=== PATIENT | male | born 1955 | race Caucasian/White ===

== ENCOUNTER 2016-03-31 04:48 | Inpatient (IN) | payer BC ==
[~2016-03-31] VITALS: Ht 177.8 cm; Wt 70.3 kg
[2016-03-31] VITALS (7 sets, daily range): BP systolic 121–179; BP diastolic 51–89
[2016-03-31 05:13] LABS: BASO # 0.1 x10^3/uL (0.0-0.2); BASO % 1 % (0-3); EOS % 4 % (0-3); HEMATOCRIT 40.1 % (39.0-53.0); HEMOGLOBIN 13.6 g/dL (13.0-17.5); LYMPH # 2.4 x10^3/uL (1.0-4.8); LYMPH % 35 % (24-48); MEAN CORPUSCULAR HEMOGLOBIN 32 pg (25-35); MEAN CORPUSCULAR HGB CONC 34 g/dL (31-37); MEAN CORPUSCULAR VOLUME 95 fL (79-100); MONO % 11 % (0-9); NEUT % 48 % (31-73); PLATELET COUNT 356 x10^3/uL (140-400); RED BLOOD COUNT 4.21 x10^6/uL (4.30-5.70); RED CELL DISTRIBUTION WIDTH 12.9 % (11.5-14.5)
--- NOTE | 2016-03-31 05:18 | PHYS DOC ---
Past Medical History Past Medical History: No Pertinent History Past Surgical History: Other Additional Past Surgical Histo: left knee Smoking: Cigar Alcohol Use: Occasionally Drug Use: None Adult General Chief Complaint Chief Complaint: NEURO SYMPTOMS/DEFICITS [facility] Patient is a 60 year old male who presents with right-sided body weakness and numbness to the right corner of his mouth since waking at 1 AM. He feels his coordination on the right side of his body is poor. He was in his normal state of health when he went to bed. He denies headache, dizziness, vision changes, speech difficulties, chest pain, dyspnea, fever or chills, palpitations, abdominal pain, diarrhea, dysuria. He denies neck pain or manipulation. Review of Systems Review of Systems Constitutional: Denies fever or chills [] Eyes: Denies change in visual acuity, redness, or eye pain [] HENT: Denies nasal congestion or sore throat [] Respiratory: Denies cough or shortness of breath [] Cardiovascular: No additional information not addressed in [facility] [] GI: Denies abdominal pain, nausea, vomiting, bloody stools or diarrhea [] : Denies dysuria or hematuria [] Musculoskeletal: Denies back pain or joint pain [] Integument: Denies rash or skin lesions [] Neurologic: Denies headache [] Endocrine: Denies polyuria or polydipsia [] Allergies Allergies Allergies Coded Allergies Type Severity Reaction Last Updated Verified No Known Drug Allergies 03/31/16 No Physical Exam Physical Exam Constitutional: Well developed, well nourished, no acute distress, non-toxic appearance. [] HENT: Normocephalic, atraumatic, bilateral external ears normal, oropharynx moist, no oral exudates, nose normal. [] Eyes: PERRLA, EOMI. [] Neck: Normal range of motion, supple. [] Cardiovascular:Heart rate regular rhythm [] Lungs & Thorax: Bilateral breath sounds clear to auscultation [] Abdomen: Bowel sounds normal, soft, no tenderness. [] Skin: Warm, dry, no erythema, no rash. [] Back: Normal ROM. [] Extremities: No tenderness, ROM intact, no edema. [] Neurologic: Arousal - alert and cooperative, A&O x 4 Speech - regular rate, volume and tone Language: fluent and spontaneous speech CN 2: PERRL CN 3, 4, 6: EOM intact, no nystagmus CN 5: Normal sensation to light touch CN 7: Mild right facial droop CN 8: Equal hearing to finger rub CN 9/10: Intact CN 11: Normal shoulder shrug bilaterally CN 12: Tongue midline Motor exam: Bilateral upper and lower extremities with normal tone, 5/5 strength. No pronator drift. Coordination: Finger to nose abnormal on RUE and normal on LUE Gait: steady, narrow gait with slight limp favoring left leg. Psychologic: Affect normal, judgement normal, mood normal. [] Current Patient Data Vital Signs Vital Signs Date Time Temp Pulse Resp B/P Pulse Ox O2 Delivery O2 Flow Rate FiO2 03/31/16 04:57 97.7 83 16 184/99 96 Room Air 97.7 Lab Values Laboratory Tests Test 03/31/16 05:05 03/31/16 05:24 White Blood Count 7.0x10^3/uL (4.0-11.0) Red Blood Count 4.21x10^6/uL (4.30-5.70) L Hemoglobin 13.6g/dL (13.0-17.5) Hematocrit 40.1% (39.0-53.0) Mean Corpuscular Volume 95fL (79-100) Mean Corpuscular Hemoglobin 32pg (25-35) Mean Corpuscular Hemoglobin Concent 34g/dL (31-37) Red Cell Distribution Width 12.9% (11.5-14.5) Platelet Count 356x10^3/uL (140-400) Neutrophils (%) (Auto) 48% (31-73) Lymphocytes (%) (Auto) 35% (24-48) Monocytes (%) (Auto) 11% (0-9) H Eosinophils (%) (Auto) 4% (0-3) H Basophils (%) (Auto) 1% (0-3) Neutrophils # (Auto) 3.4x10^3uL (1.8-7.7) Lymphocytes # (Auto) 2.4x10^3/uL (1.0-4.8) Monocytes # (Auto) 0.8x10^3/uL (0.0-1.1) Eosinophils # (Auto) 0.3x10^3/uL (0.0-0.7) Basophils # (Auto) 0.1x10^3/uL (0.0-0.2) Sodium Level 137mmol/L (136-145) Potassium Level 4.7mmol/L (3.5-5.1) Chloride Level 103mmol/L (98-107) Carbon Dioxide Level 25mmol/L (21-32) Anion Gap 9 (6-14) Blood Urea Nitrogen 12mg/dL (8-26) Creatinine 0.7mg/dL (0.7-1.3) Estimated GFR (Cockcroft-Gault) 114.3 Glucose Level 116mg/dL (70-99) H Calcium Level 8.9mg/dL (8.5-10.1) Troponin I Quantitative < 0.017ng/mL (0.000-0.055) Urine Opiates Screen Neg (NEG) Urine Methadone Screen Neg (NEG) Urine Barbiturates Neg (NEG) Urine Phencyclidine Screen Neg (NEG) Urine Amphetamine/Methamphetamine Neg (NEG) Urine Benzodiazepines Screen Neg (NEG) Urine Cocaine Screen Neg (NEG) Urine Cannabinoids Screen Neg (NEG) Urine Ethyl Alcohol Neg (NEG) Laboratory Tests 03/31/16 05:05 Laboratory Tests 03/31/16 05:05 EKG EKG EKG as interpreted by me as normal sinus rhythm, rate 81, no ST-T changes, normal intervals, PVC Radiology/Procedures Radiology/Procedures Head CT without contrast IMPRESSION No acute intracranial CT abnormality. Electronically signed by: Filemon Aggarwal MD (Mar 31, 2016 05:25:58) Course & Med Decision Making Course & Med Decision Making Pertinent Labs and Imaging studies reviewed. (See chart for details) NIHSS 2 (1 for face droop, 1 for RUE ataxia). Symptoms concerning for acute stroke. Workup otherwise unremarkable. He is not a candidate for thrombolysis due to symptom onset greater than 3 hours. Will admit for concern of acute ischemic stroke. ASA given. Discussed case with Dr. Sahni, who will admit. Neurology consultation placed. Jc Disclaimer Dragon Disclaimer This electronic medical record was generated, in whole or in part, using a voice recognition dictation system. Departure Departure Impression: Primary Impression: Acute ischemic stroke Additional Impression: Acute right-sided weakness Disposition: ADMITTED INPATIENT Condition: STABLE Problem Qualifiers Maxx URIBE MD Mar 31, 2016 05:18
[2016-03-31 05:24] LABS: CALCIUM 8.9 mg/dL (8.5-10.1); CREATININE 0.7 mg/dL (0.7-1.3); GFR 114.3; POTASSIUM 4.7 mmol/L (3.5-5.1)
--- NOTE | 2016-03-31 05:26 | RAD ---
PROCEDURE CT head without contrast HISTORY Right-sided weakness for 4 days TECHNIQUE Exposure: One or more of the following individualized dose reduction techniques were utilized for this exam: 1. Automated exposure control. 2. Adjustment of the mA and/or kV according to patient size. 3. Use of iterative reconstruction technique. [address] imaging skullbase to vertex COMPARISON No prior FINDINGS No intracranial hemorrhage, mass, hydrocephalus, extra-axial fluid collections or infarction. Differential white-white matter brain attenuation remains intact. Orbits, paranasal sinuses, mastoids and bones are unremarkable. IMPRESSION No acute intracranial CT abnormality. Electronically signed by: Filemon Aggarwal MD (Mar 31, 2016 05:25:58)
[2016-03-31 05:42] LABS: BARBITURATES NEG (NEG); BENZODIAZEPINES NEG (NEG); CANNABINOIDS NEG (NEG); COCAINE NEG (NEG); METHADONE NEG (NEG); OPIATES NEG (NEG); PHENCYCLIDINE NEG (NEG)
[2016-03-31 05:44] LABS: ETHANOL, URINE NEG (NEG)
--- NOTE | 2016-03-31 05:50 | ACF ---
Admit Criteria Forms Admit Criteria Forms Admit Criteria Forms STROKE: ISCHEMIC Clinical Indications for Admission to Inpatient Care (Place 'X' for any and all applicable criteria): Admission is indicated for ANY ONE of the following(1)(2)(3)(4): [X]I. Acute stroke Extended stay beyond goal length of stay may be needed for(1)(2) [ ]a) Major deficit or clinical deterioration [ ]b) Hospital-acquired infection (eg, urinary tract infection, pneumonia) [ ]c) Embolic cause of stroke [ ]d) Venous thromboembolism(9) [ ]e) Seizures [ ]f) Bleeding (eg, cerebral) [ ]g) Increased intracranial pressure [ ]h) Comorbidities [ ]i) Surgical intervention The original [employer] content created by [employer] has been revised. The portions of the content which have been revised are identified through the use of italic text or in bold, and [facility] has neither reviewed nor approved the modified material. All other unmodified content is copyright [employer]. Please see references footnoted in the original [employer] edition 2016 YESSENIA BROWN Mar 31, 2016 05:50
[2016-03-31] MEDS ORDERED: ONDANSETRON PF 4 MG/2 ML VIAL. IV PRN (06:00)
[2016-03-31] MEDS ORDERED: ASPIRIN 325 MG TABLET PO ONE ×2 (06:00→09:45)
[2016-03-31] MEDS ORDERED: ACETAMINOPHEN 325 MG TABLET. PO PRN (06:00)
--- NOTE | 2016-03-31 08:47 | EKG ---
[facility] [address] [place] [address] Test Date: 2016-03-31 Test Time: 06:43:53 Pat Name: BELGICA WISE Department: Room: [facility] 1 Gender: M Insurance Policy Clerk: : 1955 Requested By: Maxx URIBE Order Number: [id number] Reading MD: Marlyn Starr Measurements Intervals [place] Rate: P: [place]: QRS: QRSD: T: QT: QTc: Interpretive Statements INCOMPLETE EKG CANNOT REPORT Electronically Signed On 04-03-2016 15:43:29 [employer] by Marlyn Starr
--- NOTE | 2016-03-31 15:22 | PDOC2 ---
NEUROLOGY CONSULT Date of Admission Date of Admission DATE: 03/31/16 TIME: 15:11 Reason for Consult Reason for Consult: IMPRESSION: Right side numbness and weakness x 1 day. HTN Accelerated BP, 184/97 mmHG. Smoking RECOMMENDATIONS/PLAN: ASA 325 mg daily. Brain MRI w/o contrast. Carotid A US + Doppler. Fasting lipid in am. Lab: See orders. HISTORY OF THE PRESENT ILLNESS: 60-y-old male patient with Hx of HTN developed symptoms of right side weakness, numbness and problems of coordination after he waking up during midnight. The onset of symptoms is unknown. He came to the ER of [facility] next day with similar complaints. No cranial nerve deficits noted. PAST MEDICAL HISTORY: Please see above. PAST SURGERY HISTORY: Left Knee surgery. ALLERGY: Unknown MEDICATIONS: Refer to [facility] FAMILY HISTORY: Non contributory. SOCIAL HISTORY: Lives at home. Denies drinking, and illicit drug use. He smokes cigarettes infrequently. REVIEW OF SYSTEMS: Constitutional: No malnutrition, weight loss, cachexia. Head: No traumatic brain or head injury. Skin: No edema, or rash. Ear: No infection, tinnitus. Eyes: No vision loss or color blindness. Nose: No bleeding or purulent discharges. Hearing: Hearing decrease. Neck: No injury. Cardiac: HTN. Pulmonary: No pneumonia. GI: No GI ulcer, GI bleeding. Urinary/genital: No dysuria, hematuria, incontinence, urinary retention. Endocrinologic: No cousin face, craniofacial dysmorphism, polydactyly, goiter. Skeletomuscular: No muscular atrophy, deformity. Neurological: see HP. Psychiatric: Denies drug use/abuse. Otherwise, not [id number] review of systems. PHYSICAL EXAMINATION: General appearance is in no acute distress. HEENT: Normocephalic and nontraumatic. Eyes, nose, ears, and throat are unremarkable. Neck is supple. No lymphadenopathy. No crepitus. Cardiovascular: S1, S2, regular rate and rhythm. Pulmonary: Clear to auscultation bilaterally. Abdomen: Bowel sounds are positive. Abdomen is soft, nontender, and nondistended. Extremities: No rash, lesions, or edema. No restriction of range of motion NEUROLOGICAL EXAMINATION: Alert Oriented to time, place and person. PERRL. EOMI. CN: no focal findings. Muscle tone: within normal. Muscle strength: 4+ right side, 5 lefts zeke DTR: 2 Plantar reflex: Flexor response bilaterally Gait: not examined in bed. Sensory exam: no abnormal findings. No cerebellar signs elicited. F-T-N test fine. Current Medications Current Medications Current Medications Ondansetron HCl (Zofran) 4 mg PRN Q8HRS PRN IV NAUSEA/VOMITING; Start 03/31/16 at 06:00; Stop 04/01/16 at 05:59 Acetaminophen (Tylenol) 650 mg PRN Q4HRS PRN PO FEVER; Start 03/31/16 at 06:00; Stop 04/01/16 at 05:59 Aspirin (MinoMonsters Aspirin) 325 mg 1X ONCE PO Last administered on 03/31/16 06:02 ; Start 03/31/16 at 06:00; Stop 03/31/16 at 06:01; Status DC Aspirin (MinoMonsters Aspirin) 325 mg 1X ONCE PO Last administered on 03/31/16 11:02 ; Start 03/31/16 at 09:45; Stop 03/31/16 at 09:46; Status DC Allergies Allergies: Coded Allergies: No Known Drug Allergies (Unverified , 03/31/16) Vitals VITALS Vital Signs Date Time Temp Pulse Resp B/P Pulse Ox O2 Delivery O2 Flow Rate FiO2 03/31/16 11:24 Room Air 03/31/16 11:12 97.5 81 18 121/78 96 97.5 Labs Labs Laboratory Tests Test 03/31/16 05:05 03/31/16 05:24 White Blood Count 7.0x10^3/uL (4.0-11.0) Red Blood Count 4.21x10^6/uL (4.30-5.70) Hemoglobin 13.6g/dL (13.0-17.5) Hematocrit 40.1% (39.0-53.0) Mean Corpuscular Volume 95fL (79-100) Mean Corpuscular Hemoglobin 32pg (25-35) Mean Corpuscular Hemoglobin Concent 34g/dL (31-37) Red Cell Distribution Width 12.9% (11.5-14.5) Platelet Count 356x10^3/uL (140-400) Neutrophils (%) (Auto) 48% (31-73) Lymphocytes (%) (Auto) 35% (24-48) Monocytes (%) (Auto) 11% (0-9) Eosinophils (%) (Auto) 4% (0-3) Basophils (%) (Auto) 1% (0-3) Neutrophils # (Auto) 3.4x10^3uL (1.8-7.7) Lymphocytes # (Auto) 2.4x10^3/uL (1.0-4.8) Monocytes # (Auto) 0.8x10^3/uL (0.0-1.1) Eosinophils # (Auto) 0.3x10^3/uL (0.0-0.7) Basophils # (Auto) 0.1x10^3/uL (0.0-0.2) Sodium Level 137mmol/L (136-145) Potassium Level 4.7mmol/L (3.5-5.1) Chloride Level 103mmol/L (98-107) Carbon Dioxide Level 25mmol/L (21-32) Anion Gap 9 (6-14) Blood Urea Nitrogen 12mg/dL (8-26) Creatinine 0.7mg/dL (0.7-1.3) Estimated GFR (Cockcroft-Gault) 114.3 Glucose Level 116mg/dL (70-99) Calcium Level 8.9mg/dL (8.5-10.1) Troponin I Quantitative < 0.017ng/mL (0.000-0.055) Urine Opiates Screen Neg (NEG) Urine Methadone Screen Neg (NEG) Urine Barbiturates Neg (NEG) Urine Phencyclidine Screen Neg (NEG) Urine Amphetamine/Methamphetamine Neg (NEG) Urine Benzodiazepines Screen Neg (NEG) Urine Cocaine Screen Neg (NEG) Urine Cannabinoids Screen Neg (NEG) Urine Ethyl Alcohol Neg (NEG) Laboratory Tests Test 03/31/16 05:05 03/31/16 05:24 White Blood Count 7.0x10^3/uL (4.0-11.0) Red Blood Count 4.21x10^6/uL (4.30-5.70) Hemoglobin 13.6g/dL (13.0-17.5) Hematocrit 40.1% (39.0-53.0) Mean Corpuscular Volume 95fL (79-100) Mean Corpuscular Hemoglobin 32pg (25-35) Mean Corpuscular Hemoglobin Concent 34g/dL (31-37) Red Cell Distribution Width 12.9% (11.5-14.5) Platelet Count 356x10^3/uL (140-400) Neutrophils (%) (Auto) 48% (31-73) Lymphocytes (%) (Auto) 35% (24-48) Monocytes (%) (Auto) 11% (0-9) Eosinophils (%) (Auto) 4% (0-3) Basophils (%) (Auto) 1% (0-3) Neutrophils # (Auto) 3.4x10^3uL (1.8-7.7) Lymphocytes # (Auto) 2.4x10^3/uL (1.0-4.8) Monocytes # (Auto) 0.8x10^3/uL (0.0-1.1) Eosinophils # (Auto) 0.3x10^3/uL (0.0-0.7) Basophils # (Auto) 0.1x10^3/uL (0.0-0.2) Sodium Level 137mmol/L (136-145) Potassium Level 4.7mmol/L (3.5-5.1) Chloride Level 103mmol/L (98-107) Carbon Dioxide Level 25mmol/L (21-32) Anion Gap 9 (6-14) Blood Urea Nitrogen 12mg/dL (8-26) Creatinine 0.7mg/dL (0.7-1.3) Estimated GFR (Cockcroft-Gault) 114.3 Glucose Level 116mg/dL (70-99) Calcium Level 8.9mg/dL (8.5-10.1) Troponin I Quantitative < 0.017ng/mL (0.000-0.055) Urine Opiates Screen Neg (NEG) Urine Methadone Screen Neg (NEG) Urine Barbiturates Neg (NEG) Urine Phencyclidine Screen Neg (NEG) Urine Amphetamine/Methamphetamine Neg (NEG) Urine Benzodiazepines Screen Neg (NEG) Urine Cocaine Screen Neg (NEG) Urine Cannabinoids Screen Neg (NEG) Urine Ethyl Alcohol Neg (NEG) ROSETTE ENGLISH MD Mar 31, 2016 15:22
--- NOTE | 2016-03-31 17:26 | RAD ---
Indication right-sided weakness. Suspect CVA. MRI examination of the head was performed. Imaging sequences which were obtained including axial DWI and ADC maps as well as sagittal T1, axial T1-T2 FLAIR and gradient echo sequences. A coronal T2 sequence was also obtained. Best demonstrated on the DWI sequence is an area of recent or acute infarction in the left deep white matter and basal ganglia. Best demonstrated on the FLAIR sequence are areas of increased signal intensity in the white matter likely reflecting microvascular disease. No parenchymal hemorrhage is seen. IMPRESSION: Acute or recent left deep white matter infarct extending to the basal ganglia
--- NOTE | 2016-04-01 01:18 | HP ---
ADMIT DATE: 03/31/2016 CHIEF COMPLAINT: Stroke symptoms. HISTORY OF PRESENT ILLNESS: The patient is a pleasant 60-year-old male who presented with right-sided weakness and facial numbness and slurred speech, occurred at 1:00 in the morning. He apparently was normal before he went to bed. He came last night and they did a CAT scan of the brain which showed no acute stroke, but clinically he certainly seems to have one. He is now on the medical floor. We will plan to consult Neurology. PAST MEDICAL HISTORY: Left knee surgery. ALLERGIES: None. FAMILY HISTORY: Strokes. SOCIAL HISTORY: Does not drink, smoke or take drugs (he does smoke cigar once in a while). MEDICATIONS: Reviewed, please refer to the MRAD. REVIEW OF SYSTEMS: GENERAL: No history of weight change, weakness or fevers. SKIN: No bruising, hair changes or rashes. EYES: No blurred, double or loss of vision. NOSE AND THROAT: No history of nosebleeds, hoarseness or sore throat. HEART: No history of palpitations, chest pain or shortness of breath on exertion. LUNGS: Denies cough, hemoptysis, wheezing or shortness of breath. GASTROINTESTINAL: Denies changes in appetite, nausea, vomiting, diarrhea or constipation. GENITOURINARY: No history of frequency, urgency, hesitancy or nocturia. NEUROLOGIC: Complains of right-sided weakness. PSYCHIATRIC: No history of panic, anxiety or depression. ENDOCRINE: No history of heat or cold intolerance, polyuria or polydipsia. EXTREMITIES: Denies muscle weakness, joint pain, pain on walking or stiffness. PHYSICAL EXAMINATION: VITAL SIGNS: Temperature afebrile, pulse 92, respirations 18, blood pressure 142/67. GENERAL: He is alert, cooperative. He has a little bit of right facial droop. HEART: Normal S1, S2. LUNGS: Clear. ABDOMEN: Soft, positive bowel sounds. EXTREMITIES: No edema. SKIN: No rashes. PSYCHIATRIC: He is stable. VASCULAR: Good capillary refill. ENDOCRINE: No thyromegaly. LYMPHATICS: No cervical nodes. HEMATOPOIETIC: No bruising. NEUROLOGICAL: He has got right weakness and right facial droop. IMAGING: CT of the head is negative. LABORATORY DATA: White count 7, hemoglobin 13, platelets 356. Electrolytes normal other than a glucose of 116. Troponin is 0. ASSESSMENT AND PLAN: Stroke symptoms. The patient has been admitted. We will consult Neurology, suspect he may need an MRI. Daily aspirin. PT, OT. Resume home medicines. CHENTE MARTÍNEZ DO DR: SHERRY/anjana JOB#: [id number] / [id number]
[2016-04-01 03:00] VITALS: BP 130/83
[2016-04-01 05:38] LABS: BASO # 0.1 x10^3/uL (0.0-0.2); BASO % 1 % (0-3); EOS % 2 % (0-3); HEMOGLOBIN 12.9 g/dL (13.0-17.5); LYMPH # 2.2 x10^3/uL (1.0-4.8); LYMPH % 29 % (24-48); MEAN CORPUSCULAR HEMOGLOBIN 32 pg (25-35); MEAN CORPUSCULAR HGB CONC 34 g/dL (31-37); MEAN CORPUSCULAR VOLUME 95 fL (79-100); MONO % 8 % (0-9); NEUT % 60 % (31-73); PLATELET COUNT 343 x10^3/uL (140-400); RED CELL DISTRIBUTION WIDTH 13.3 % (11.5-14.5); WHITE BLOOD COUNT 7.5 x10^3/uL (4.0-11.0)
[2016-04-01 05:54] LABS: CALCIUM 8.9 mg/dL (8.5-10.1); CREATININE 0.8 mg/dL (0.7-1.3); POTASSIUM 4.3 mmol/L (3.5-5.1)
[2016-04-01 06:08] LABS: CHOLESTEROL/HDL RATIO 2.3
[2016-04-01 07:00] VITALS: BP 126/79
[2016-04-01] MEDS: ASPIRIN 325 MG TABLET PO SCH ×2 (08:08→08:09)
--- NOTE | 2016-04-01 09:38 | RAD ---
Clinical indications: Right-sided facial droop. Slurred speech. Right-sided arm and leg numbness. Weakness. Unable to walk.. Duplex sonography of the cervical portion of both carotid arteries was performed including color flow imaging and spectral waveform analysis with flow velocity measurement and white scale evaluation. Right side: Peak systolic flow velocity of the CCA is 76 cm/sec. Peak systolic flow velocity of the ICA is 77 cm/sec. Thus, the ICA/CCA ratio is proximately 1.0. Peak end diastolic flow velocity of the ICA is 31 cm/sec. The peak systolic velocity of the ECA is 56 cm/sec. Left side: Peak systolic flow velocity of the CCA is 75 cm/sec. Peak systolic flow velocity of the ICA is 81 cm/sec. Thus, the ICA/CCA ratio is 1.1. Peak end diastolic flow velocity of the ICA is 32 cm/sec. Peak systolic flow velocity of the ECA is 81 cm/sec. Mild soft and calcified plaque formation is seen within the left carotid bulb and origin of the left ICA which is less than 50%. The right carotid bifurcation is normal. Antegrade vertebral flow is seen bilaterally. The measurements were made using the NASCET criteria. Impression:No significant plaque formation is identified within the cervical portion of either carotid artery.
[2016-04-01 11:00] VITALS: BP 123/79
--- NOTE | 2016-04-01 11:26 | PDOC ---
PROGRESS NOTES Chief Complaint Chief Complaint CC: Stroke symptoms 1. R side weakness 2. R lower facial droop 3. L knee surgery History of Present Illness History of Present Illness Pt sitting up in bed Pt was easily able to walk around the room Pt feels ready to go home to [place] Probable D/C if OK with neuro VSS DW RN Vitals Vitals Vital Signs Date Time Temp Pulse Resp B/P Pulse Ox O2 Delivery O2 Flow Rate FiO2 04/01/16 11:00 97.8 79 20 123/79 96 Room Air 97.8 Physical Exam General: Alert, Oriented X3 Heart: Regular rate, No murmurs Lungs: Clear, Other (No wheezes) Abdomen: Normal bowel sounds, Soft Extremities: No cyanosis, No edema Skin: No rashes, No breakdown Labs LABS Laboratory Tests Test 04/01/16 04:50 White Blood Count 7.5x10^3/uL (4.0-11.0) Red Blood Count 4.00x10^6/uL (4.30-5.70) Hemoglobin 12.9g/dL (13.0-17.5) Hematocrit 38.0% (39.0-53.0) Mean Corpuscular Volume 95fL (79-100) Mean Corpuscular Hemoglobin 32pg (25-35) Mean Corpuscular Hemoglobin Concent 34g/dL (31-37) Red Cell Distribution Width 13.3% (11.5-14.5) Platelet Count 343x10^3/uL (140-400) Neutrophils (%) (Auto) 60% (31-73) Lymphocytes (%) (Auto) 29% (24-48) Monocytes (%) (Auto) 8% (0-9) Eosinophils (%) (Auto) 2% (0-3) Basophils (%) (Auto) 1% (0-3) Neutrophils # (Auto) 4.5x10^3uL (1.8-7.7) Lymphocytes # (Auto) 2.2x10^3/uL (1.0-4.8) Monocytes # (Auto) 0.6x10^3/uL (0.0-1.1) Eosinophils # (Auto) 0.2x10^3/uL (0.0-0.7) Basophils # (Auto) 0.1x10^3/uL (0.0-0.2) Sodium Level 138mmol/L (136-145) Potassium Level 4.3mmol/L (3.5-5.1) Chloride Level 105mmol/L (98-107) Carbon Dioxide Level 23mmol/L (21-32) Anion Gap 10 (6-14) Blood Urea Nitrogen 17mg/dL (8-26) Creatinine 0.8mg/dL (0.7-1.3) Estimated GFR (Cockcroft-Gault) 98.0 Glucose Level 109mg/dL (70-99) Calcium Level 8.9mg/dL (8.5-10.1) Triglycerides Level 57mg/dL (0-150) Cholesterol Level 171mg/dL (0-200) LDL Cholesterol, Calculated 84mg/dL (0-100) VLDL Cholesterol, Calculated 11mg/dL (0-40) HDL Cholesterol 76mg/dL (40-60) Cholesterol/HDL Ratio 2.3 Review of Systems Review of Systems Complains of fatigue Complains of hunger Assessment and Plan Assessmemt and Plan Problems Medical Problems: (1) Acute ischemic stroke Status: Acute (2) Acute right-sided weakness Status: Acute Assessment: CC: Stroke symptoms 1. R side weakness 2. R lower facial droop 3. L knee surgery Plan: Probable D/C if ok with neuro Start statin Start aspirin Continue home meds Appreciate the input from subspecialty Problems: Comment Review of Relevant I have reviewed the following items chris (where applicable) has been applied. Labs Laboratory Tests Test 03/31/16 05:05 03/31/16 05:24 04/01/16 04:50 White Blood Count 7.0x10^3/uL (4.0-11.0) 7.5x10^3/uL (4.0-11.0) Red Blood Count 4.21x10^6/uL (4.30-5.70) 4.00x10^6/uL (4.30-5.70) Hemoglobin 13.6g/dL (13.0-17.5) 12.9g/dL (13.0-17.5) Hematocrit 40.1% (39.0-53.0) 38.0% (39.0-53.0) Mean Corpuscular Volume 95fL (79-100) 95fL (79-100) Mean Corpuscular Hemoglobin 32pg (25-35) 32pg (25-35) Mean Corpuscular Hemoglobin Concent 34g/dL (31-37) 34g/dL (31-37) Red Cell Distribution Width 12.9% (11.5-14.5) 13.3% (11.5-14.5) Platelet Count 356x10^3/uL (140-400) 343x10^3/uL (140-400) Neutrophils (%) (Auto) 48% (31-73) 60% (31-73) Lymphocytes (%) (Auto) 35% (24-48) 29% (24-48) Monocytes (%) (Auto) 11% (0-9) 8% (0-9) Eosinophils (%) (Auto) 4% (0-3) 2% (0-3) Basophils (%) (Auto) 1% (0-3) 1% (0-3) Neutrophils # (Auto) 3.4x10^3uL (1.8-7.7) 4.5x10^3uL (1.8-7.7) Lymphocytes # (Auto) 2.4x10^3/uL (1.0-4.8) 2.2x10^3/uL (1.0-4.8) Monocytes # (Auto) 0.8x10^3/uL (0.0-1.1) 0.6x10^3/uL (0.0-1.1) Eosinophils # (Auto) 0.3x10^3/uL (0.0-0.7) 0.2x10^3/uL (0.0-0.7) Basophils # (Auto) 0.1x10^3/uL (0.0-0.2) 0.1x10^3/uL (0.0-0.2) Sodium Level 137mmol/L (136-145) 138mmol/L (136-145) Potassium Level 4.7mmol/L (3.5-5.1) 4.3mmol/L (3.5-5.1) Chloride Level 103mmol/L (98-107) 105mmol/L (98-107) Carbon Dioxide Level 25mmol/L (21-32) 23mmol/L (21-32) Anion Gap 9 (6-14) 10 (6-14) Blood Urea Nitrogen 12mg/dL (8-26) 17mg/dL (8-26) Creatinine 0.7mg/dL (0.7-1.3) 0.8mg/dL (0.7-1.3) Estimated GFR (Cockcroft-Gault) 114.3 98.0 Glucose Level 116mg/dL (70-99) 109mg/dL (70-99) Calcium Level 8.9mg/dL (8.5-10.1) 8.9mg/dL (8.5-10.1) Troponin I Quantitative < 0.017ng/mL (0.000-0.055) Urine Opiates Screen Neg (NEG) Urine Methadone Screen Neg (NEG) Urine Barbiturates Neg (NEG) Urine Phencyclidine Screen Neg (NEG) Urine Amphetamine/Methamphetamine Neg (NEG) Urine Benzodiazepines Screen Neg (NEG) Urine Cocaine Screen Neg (NEG) Urine Cannabinoids Screen Neg (NEG) Urine Ethyl Alcohol Neg (NEG) Triglycerides Level 57mg/dL (0-150) Cholesterol Level 171mg/dL (0-200) LDL Cholesterol, Calculated 84mg/dL (0-100) VLDL Cholesterol, Calculated 11mg/dL (0-40) HDL Cholesterol 76mg/dL (40-60) Cholesterol/HDL Ratio 2.3 Laboratory Tests Test 04/01/16 04:50 White Blood Count 7.5x10^3/uL (4.0-11.0) Red Blood Count 4.00x10^6/uL (4.30-5.70) Hemoglobin 12.9g/dL (13.0-17.5) Hematocrit 38.0% (39.0-53.0) Mean Corpuscular Volume 95fL (79-100) Mean Corpuscular Hemoglobin 32pg (25-35) Mean Corpuscular Hemoglobin Concent 34g/dL (31-37) Red Cell Distribution Width 13.3% (11.5-14.5) Platelet Count 343x10^3/uL (140-400) Neutrophils (%) (Auto) 60% (31-73) Lymphocytes (%) (Auto) 29% (24-48) Monocytes (%) (Auto) 8% (0-9) Eosinophils (%) (Auto) 2% (0-3) Basophils (%) (Auto) 1% (0-3) Neutrophils # (Auto) 4.5x10^3uL (1.8-7.7) Lymphocytes # (Auto) 2.2x10^3/uL (1.0-4.8) Monocytes # (Auto) 0.6x10^3/uL (0.0-1.1) Eosinophils # (Auto) 0.2x10^3/uL (0.0-0.7) Basophils # (Auto) 0.1x10^3/uL (0.0-0.2) Sodium Level 138mmol/L (136-145) Potassium Level 4.3mmol/L (3.5-5.1) Chloride Level 105mmol/L (98-107) Carbon Dioxide Level 23mmol/L (21-32) Anion Gap 10 (6-14) Blood Urea Nitrogen 17mg/dL (8-26) Creatinine 0.8mg/dL (0.7-1.3) Estimated GFR (Cockcroft-Gault) 98.0 Glucose Level 109mg/dL (70-99) Calcium Level 8.9mg/dL (8.5-10.1) Triglycerides Level 57mg/dL (0-150) Cholesterol Level 171mg/dL (0-200) LDL Cholesterol, Calculated 84mg/dL (0-100) VLDL Cholesterol, Calculated 11mg/dL (0-40) HDL Cholesterol 76mg/dL (40-60) Cholesterol/HDL Ratio 2.3 Medications Current Medications Ondansetron HCl (Zofran) 4 mg PRN Q8HRS PRN IV NAUSEA/VOMITING; Start 03/31/16 at 06:00; Stop 04/01/16 at 05:59; Status DC Acetaminophen (Tylenol) 650 mg PRN Q4HRS PRN PO FEVER; Start 03/31/16 at 06:00; Stop 04/01/16 at 05:59; Status DC Aspirin ([employer] Aspirin) 325 mg 1X ONCE PO Last administered on 03/31/16 06:02 ; Start 03/31/16 at 06:00; Stop 03/31/16 at 06:01; Status DC Aspirin (Franchise [employer] Aspirin) 325 mg 1X ONCE PO Last administered on 03/31/16 11:02 ; Start 03/31/16 at 09:45; Stop 03/31/16 at 09:46; Status DC Aspirin (Kely Aspirin) 325 mg DAILYWBKFT PO Last administered on 04/01/16t 08: 09; Start 04/01/16 at 08:00 Vitals/I & O Vital Sign - Last 24 Hours 03/31/16 03/31/16 03/31/16 03/31/16 11:24 15:18 19:00 20:00 Temp 97.7 97.5 97.7 97.5 Pulse 76 70 Resp 18 18 B/P 126/85 136/79 Pulse Ox 96 93 O2 Delivery Room Air Room Air Room Air Room Air 03/31/16 04/01/16 04/01/16 04/01/16 23:00 03:00 07:00 08:00 Temp 97.2 97.5 97.7 97.2 97.5 97.7 Pulse 80 75 74 Resp 18 18 20 B/P 124/68 130/83 126/79 Pulse Ox 95 95 93 O2 Delivery Room Air Room Air Room Air Room Air 04/01/16 11:00 Temp 97.8 97.8 Pulse 79 Resp 20 B/P 123/79 Pulse Ox 96 O2 Delivery Room Air Intake and Output 03/31/16 03/31/16 04/01/16 15:00 23:00 07:00 Intake Total 800 ml 700 ml Balance 800 ml 700 ml CHENTE MARTÍNEZ III DO Apr 01, 2016 11:26
--- NOTE | 2016-04-01 14:51 | PDOC ---
PROGRESS NOTES Assessment Assessment Subacute left WM infarct extended to left BG. Right side numbness and weakness x 1 day before admission. HTN Accelerated BP, 184/97 mmHg. Smoking Drinking. RECOMMENDATIONS/PLAN: Continue ASA 325 mg daily. BP control. FU with PCP. FU with Neurology as needed. Discussed in detail with him and his at bedside. Wait for Echo reports. Brain MRI w/o contrast: infract, see reports. Carotid A US + Doppler: no high grade stenosis. Fasting lipid in am: LDL 84, can be on diet. HISTORY OF THE PRESENT ILLNESS: 60-y-old male patient with Hx of HTN developed symptoms of right side weakness, numbness and problems of coordination after he waking up during midnight. The onset of symptoms is unknown. He came to the ER of [facility] next day with similar complaints. No cranial nerve deficits noted. His symptoms of right side weakness and numbness are improved on 04/01. PAST MEDICAL HISTORY: Please see above. PAST SURGERY HISTORY: Left Knee surgery. ALLERGY: Unknown MEDICATIONS: Refer to [facility] FAMILY HISTORY: Non contributory. SOCIAL HISTORY: Lives at home. Denies drinking, and illicit drug use. He smokes cigarettes infrequently. REVIEW OF SYSTEMS: Constitutional: No malnutrition, weight loss, cachexia. Head: No traumatic brain or head injury. Skin: No edema, or rash. Ear: No infection, tinnitus. Eyes: No vision loss or color blindness. Nose: No bleeding or purulent discharges. Hearing: Hearing decrease. Neck: No injury. Cardiac: HTN. Pulmonary: No pneumonia. GI: No GI ulcer, GI bleeding. Urinary/genital: No dysuria, hematuria, incontinence, urinary retention. Endocrinologic: No cousin face, craniofacial dysmorphism, polydactyly, goiter. Skeletomuscular: No muscular atrophy, deformity. Neurological: see HP. Psychiatric: Denies drug use/abuse. Otherwise, not [id number] review of systems. PHYSICAL EXAMINATION: General appearance is in no acute distress. HEENT: Normocephalic and nontraumatic. Eyes, nose, ears, and throat are unremarkable. Neck is supple. No lymphadenopathy. No crepitus. Cardiovascular: S1, S2, regular rate and rhythm. Pulmonary: Clear to auscultation bilaterally. Abdomen: Bowel sounds are positive. Abdomen is soft, nontender, and nondistended. Extremities: No rash, lesions, or edema. No restriction of range of motion NEUROLOGICAL EXAMINATION: Alert Oriented to time, place and person. PERRL. EOMI. CN: no focal findings. Muscle tone: within normal. Muscle strength: 5- right side, 5 left side DTR: 2 Plantar reflex: Flexor response bilaterally Gait: not examined in bed. Sensory exam: no abnormal findings. No cerebellar signs elicited. F-T-N test fine. Objective Objective Vital Signs Date Time Temp Pulse Resp B/P Pulse Ox O2 Delivery O2 Flow Rate FiO2 04/01/16 11:00 97.8 79 20 123/79 96 Room Air 97.8 Intake and Output 04/01/16 07:00 Intake Total 1500 ml Balance 1500 ml Intake Oral 1500 ml # Voids 6 Vitals Signs Vitals VS - Last 72 Hours, by Label Date Time Temp Pulse Resp B/P Pulse Ox O2 Delivery O2 Flow Rate FiO2 04/01/16 11:00 97.8 79 20 123/79 96 Room Air 97.8 04/01/16 08:00 Room Air 04/01/16 07:00 97.7 74 20 126/79 93 Room Air 97.7 04/01/16 03:00 97.5 75 18 130/83 95 Room Air 97.5 03/31/16 23:00 97.2 80 18 124/68 95 Room Air 97.2 03/31/16 20:00 Room Air 03/31/16 19:00 97.5 70 18 136/79 93 Room Air 97.5 03/31/16 15:18 97.7 76 18 126/85 96 Room Air 97.7 03/31/16 11:24 Room Air 03/31/16 11:12 97.5 81 18 121/78 96 Room Air 97.5 03/31/16 07:00 97.4 67 18 147/89 98 Room Air 97.4 03/31/16 07:00 97.4 67 18 147/89 98 Room Air 97.4 Laboratory Laboratory Laboratory Tests Test 04/01/16 04:50 White Blood Count 7.5x10^3/uL (4.0-11.0) Red Blood Count 4.00x10^6/uL (4.30-5.70) Hemoglobin 12.9g/dL (13.0-17.5) Hematocrit 38.0% (39.0-53.0) Mean Corpuscular Volume 95fL (79-100) Mean Corpuscular Hemoglobin 32pg (25-35) Mean Corpuscular Hemoglobin Concent 34g/dL (31-37) Red Cell Distribution Width 13.3% (11.5-14.5) Platelet Count 343x10^3/uL (140-400) Neutrophils (%) (Auto) 60% (31-73) Lymphocytes (%) (Auto) 29% (24-48) Monocytes (%) (Auto) 8% (0-9) Eosinophils (%) (Auto) 2% (0-3) Basophils (%) (Auto) 1% (0-3) Neutrophils # (Auto) 4.5x10^3uL (1.8-7.7) Lymphocytes # (Auto) 2.2x10^3/uL (1.0-4.8) Monocytes # (Auto) 0.6x10^3/uL (0.0-1.1) Eosinophils # (Auto) 0.2x10^3/uL (0.0-0.7) Basophils # (Auto) 0.1x10^3/uL (0.0-0.2) Sodium Level 138mmol/L (136-145) Potassium Level 4.3mmol/L (3.5-5.1) Chloride Level 105mmol/L (98-107) Carbon Dioxide Level 23mmol/L (21-32) Anion Gap 10 (6-14) Blood Urea Nitrogen 17mg/dL (8-26) Creatinine 0.8mg/dL (0.7-1.3) Estimated GFR (Cockcroft-Gault) 98.0 Glucose Level 109mg/dL (70-99) Calcium Level 8.9mg/dL (8.5-10.1) Triglycerides Level 57mg/dL (0-150) Cholesterol Level 171mg/dL (0-200) LDL Cholesterol, Calculated 84mg/dL (0-100) VLDL Cholesterol, Calculated 11mg/dL (0-40) HDL Cholesterol 76mg/dL (40-60) Cholesterol/HDL Ratio 2.3 Medication Medications Current Medications Aspirin (Kely Aspirin) 325 mg DAILYWBKFT PO Last administered on 04/01/16t 08: 09; Start 04/01/16 at 08:00 Comment Review of Relevant I have reviewed the following items chris (where applicable) has been applied. ROSETTE ENGLISH MD Apr 01, 2016 14:51
[2016-04-01 15:00] VITALS: BP 139/85
--- NOTE | 2016-04-01 16:13 | CARD ---
APPROVED REPORT EXAM: Two-dimensional and M-mode echocardiogram with Doppler, color Doppler with contrast. Other Information Quality : Average Rhythm : NSR INDICATION CVA/TIA Echo Enhancing Agent Indication: Rule Out Septal Defect Agent/Amount Used: Agitated Saline 8mL 2D DIMENSIONS Left Atrium(2D)2.9 (1.6-4.0cm)IVSd1.0 (0.7-1.1cm) Aortic Root(2D)3.5 (2.0-3.7cm)LVDd4.8 (3.9-5.9cm) LVOT Diameter2.0 (1.8-2.4cm)PWd1.0 (0.7-1.1cm) LVDs3.6 (2.5-4.0cm)FS (%) 26.0 % SV55.5 mlLVEF(%)55.0 (>50%) Aortic Valve AoV Peak Zechariah.110.0cm/sAoV VTI20.6cm AO Peak GR.4.8mmHgLVOT Peak Zechariah.72.4cm/s LVOT VTI 14.04cmAO Mean GR.3mmHg DOMINGA (VMAX)2.41li3FAB (VTI)2.24cm2 Mitral Valve MV E Wbdxevrj67.7cm/sMV DECEL [id number] MV A Ksflsjmy93.1cm/sMV E Mean Gr.1mmHg MV [id number]/A Ratio1.0 MV A [id number] (PHT)1.76cm2 TDI E/Lateral E'5.7E/Medial E'7.0 Pulmonary Valve PV Peak Gxflkdrc790.3cm/sPV Peak Grad.5mmHg RVOT VTI13.4cm Tricuspid Valve TR P. Qpeeqixs195pj/sRAP [id number] TR Peak Gr.44byBeHEFJ01tjSr LEFT VENTRICLE The left ventricle is normal size. There is normal left ventricular wall thickness. Left ventricle sy stolic function is normal. The Ejection Fraction is 55%. There is normal LV segmental wall motion. Th e left ventricular diastolic function and filling is normal for age. RIGHT VENTRICLE The right ventricle is normal size. The right ventricular systolic function is normal. ATRIA The left atrium size is normal. The right atrium size is normal. The interatrial septum is intact wit h no evidence for an atrial septal defect or patent foramen ovale as noted on 2-D or Doppler imaging. Injection of bubbles documented no interatrial shunt. AORTIC VALVE The aortic valve is normal in structure and function. The aortic valve is trileaflet. Doppler and Col or Flow revealed no significant aortic regurgitation. There is no significant aortic valvular stenosi s. MITRAL VALVE The mitral valve is normal in structure There is no mitral valve stenosis. Doppler and Color Flow rev ealed mild mitral regurgitation. TRICUSPID VALVE The tricuspid valve is normal in structure Doppler and Color Flow revealed trace to mild tricuspid re gurgitation. The PA pressure was estimated at 32 mmHg. There is no tricuspid valve stenosis. PULMONIC VALVE The pulmonic valve is not well visualized. Doppler and Color Flow revealed no pulmonic valvular regur gitation. There is no pulmonic valvular stenosis. GREAT VESSELS The aortic root is normal in size. The IVC is normal in size and collapses >50% with inspiration. PERICARDIAL EFFUSION There is no evidence of significant pericardial effusion. Critical Notification Critical Value: No <Conclusion> Left ventricle systolic function is normal. The Ejection Fraction is 55%. The left atrium size is normal. The right atrium size is normal. The aortic valve is normal in structure and function. The aortic valve is trileaflet. Doppler and Color Flow revealed mild mitral regurgitation. Doppler and Color Flow revealed trace to mild tricuspid regurgitation. The PA pressure was estimated at 32 mmHg. The pulmonic valve is not well visualized. There is no evidence of significant pericardial effusion. No thrombus was seen in any of the chambers
== END 2016-04-01 16:41 | disposition home or self-care (01) | DRG 66 ==
LOC: ER 04:48 → 6 SOUTH 05:30
PROVIDERS: ADMIT Internal Medicine; ATTEND Internal Medicine
DX: I63.9 Cerebral infarction, unspecified (principal); F17.210 Nicotine dependence, cigarettes, uncomplicated; I10 Essential (primary) hypertension; Z79.82 Long term (current) use of aspirin; Z82.3 Family history of stroke
CPT/HCPCS: 99285; C8929; 36415; 70450; 70551; 80048; 80061; 84484; 85027; 93005; 93880; G0481; 92610; 97110; 97116